=== PATIENT | female | born 1955 | race Caucasian/White ===

== ENCOUNTER 2016-08-06 16:29 | Emergency (ER) | payer MEDICAID ==
[~2016-08-06] VITALS: Wt 83.1 kg
[2016-08-06] MEDS ORDERED: ONDANSETRON 4 MG INJ IV STA (16:43)
[2016-08-06] MEDS ORDERED: morphine 4 MG/ML VIAL IV STA ×2 (16:43→17:55)
[2016-08-06] MEDS ORDERED: FAMOTIDINE 20 MG INJ IV STA (16:43)
[2016-08-06] MEDS ORDERED: HYD25 PO (17:11)
[2016-08-06] MEDS ORDERED: LANT3I SC (17:11)
[2016-08-06] MEDS ORDERED: OMEP20CA16 PO (17:13)
[2016-08-06] MEDS ORDERED: SODI325T PO (17:18)
[2016-08-06] MEDS ORDERED: ACET-141 PO (17:21)
[2016-08-06] MEDS ORDERED: CAPT25TA3 PO (17:21)
[2016-08-06] MEDS ORDERED: METO-407 PO (17:22)
[2016-08-06 17:31] LABS: ADD UMIC YES; URINE BILIRUBIN (Dip) NEGATIVE (NEGATIVE); URINE BLOOD (Dip) 2+ (NEGATIVE); URINE COLOR LT. YELLOW (YELLOW); URINE GLUCOSE (Dip) NEGATIVE (NEGATIVE); URINE KETONES (Dip) NEGATIVE (NEGATIVE); URINE LEUKOCYTE ESTERASE (Dip) 1+ (NEGATIVE); URINE NITRITE (Dip) NEGATIVE (NEGATIVE); URINE TOTAL PROTEIN (Dip) NEGATIVE (NEGATIVE); URINE UROBILINOGEN (Dip) 1.0 E.U./dL (0.1-1.0)
[2016-08-06 17:33] LABS: ALBUMIN 3.2 g/dl (3.3-4.9)
[2016-08-06 17:34] LABS: POTASSIUM 3.8 mmol/L (3.5-5.1)
[2016-08-06 17:36] LABS: ALBUMIN/GLOBULIN RATIO 0.69; BILIRUBIN,INDIRECT 0.6 mg/dl (0-1.1); BILIRUBIN,TOTAL 0.6 mg/dl (0.2-1.3); CREATININE 0.59 mg/dl (0.44-1.00); TOTAL PROTEIN 7.8 g/dl (6.1-8.1)
[2016-08-06 17:37] LABS: CALCIUM 8.3 mg/dl (8.4-10.2)
[2016-08-06 17:52] LABS: BASOPHILS % 0.3 % (0.0-2.0); CONDITION 1; EOSINOPHILS % 0.4 % (0.0-7.0); HEMATOCRIT 27.2 % (37.0-47.0); HEMOGLOBIN 8.5 g/dl (12.0-16.0); LYMPHOCYTES # 0.7 10^3/ul (0.8-2.9); MEAN CORPUSCULAR HGB CONC 31.4 g/dl (32.0-37.0); MEAN CORPUSCULAR VOLUME 73.4 fl (82.0-101.0); MEAN PLATELET VOLUME 11.3 fl (7.4-10.4); MONOCYTE # 0.4 10^3/ul (0.3-0.9); MONOCYTES % 12.8 % (0.0-11.0); NEUTROPHIL # 2.4 10^3/ul (1.6-7.5); NEUTROPHILS % 67.5 % (39.0-77.0); PLATELET COUNT 132 10^3/UL (140-440); RED BLOOD COUNT 3.71 10^6/ul (4.20-5.40); RED CELL DISTRIBUTION WIDTH 19.5 % (11.5-14.5); SUSPECT 1; UNCORRECTED WBC 3.5 10^3/ul (4.8-10.8); WHITE BLOOD COUNT 3.5 10^3/ul (4.8-10.8)
[2016-08-06 17:53] LABS: LH ANALYZER COMMENTS 1
[2016-08-06] MEDS ORDERED: METOCLOPRAMIDE 10 MG INJ IV ONE (18:00)
[2016-08-06 18:22] LABS: BACTERIA,URINE MODERATE; SQUAMOUS EPITHELIAL CELL,UR MANY
--- NOTE | 2016-08-06 18:40 | RADRPT ---
PROCEDURE: CT Abdomen and Pelvis without intravenous contrast. CLINICAL INDICATION: Abdominal pain. TECHNIQUE: CT scan of the abdomen and pelvis without intravenous contrast was performed on a multi -slice CT scanner. Coronal and sagittal reformatted images were obtained from the axial source image s. Images were reviewed on a high-resolution PACS workstation. Total DLP = 1138.1 mGy-cm. CTDIvol = 19.8 mGy. One or more of the following dose reduction techniques were used: Automated exposure control. Adjustment of the mA and/or kV according to patient size. Use of iterative reconstruction technique. COMPARISON: None. FINDINGS: CT abdomen and pelvis: The lung bases are clear. The heart size is normal in size. The liver is small in size with hetero geneous density and lobular margins consistent with cirrhosis. There is no focal hepatic mass or in trahepatic biliary dilatation. The spleen is enlarged consistent with portal hypertension.. The p ancreas as visualized is normal. The gallbladder is nondistended with multiple small calcified intr aluminal stones. There is slight wall thickening of the gallbladder.. The adrenal glands are horace l. The kidneys are symmetrically unremarkable. No urolithiasis, obstructive uropathy, or solid mas s lesion is seen. The stomach is partially collapsed, but is grossly unremarkable. The distal esophagus is mildly dis tended with fluid.. The small bowels are unremarkable. The colon and rectum are normal. There is n o evidence of appendicitis or diverticulitis. The uterus has been removed.. The bladder is decompres sed. There is a large amount of ascites throughout the abdomen and pelvis.. There is no abdominal o r pelvic adenopathy, free air or mass. The aorta is normal in caliber with calcific atherosclerosis . The osseous structures showing degen erative spondylosis of the spine. No osteolytic or osteoblastic lesions are identified. There is a small umbilical hernia containing ascites. Mild subcutaneous edema is present.. Lack of IV and ora l contrast limits sensitivity of exam. IMPRESSION: 1. Cirrhotic changes of the liver. 2. Splenomegaly consistent with portal hypertension. 3. Large ascites. 4. Cholelithiasis with mild gallbladder wall thickening. 5. Mild fluid distension of the distal esophagus. 6. Small umbilical hernia containing ascites. 7. Status post hysterectomy. RPTAT: HJ[facility] .Aron Gottlieb MD, MD Date Time Electronically viewed and signed by .Aron Gottlieb MD, on 08/06/2016 18:40 .L/
--- NOTE | 2016-08-06 18:59 | ERD ---
ER Documentation Chief Complaint Date/Time DATE: 08/06/16 TIME: 18:53 Chief Complaint ABD PAIN AND DISTENTION FOR THE PAST MONTH, NAUSEA AND DIZZY. HPI This is a 61-year-old female who presents to the emergency room for evaluation of abdominal pain, nausea and vomiting for the past month. The patient does have a history of hepatitis C secondary to blood transfusion. The patient came to the ER today for evaluation of this distention, nausea and vomiting. She denies any fevers or diarrhea associated with this. ROS All systems reviewed and are negative except as per history of present illness. Medications Home Meds Reported Medications Metoprolol Tartrate* (Lopressor*) 100 Mg Tablet, 100 MG PO BID, #60 TAB 08/06/16 Captopril* (Captopril*) 25 Mg Tablet, 25 MG PO BID, #60 TAB 08/06/16 Acetaminophen* (Acetaminophen*) 500 MG Extra Strength Tablet, 1000 MG PO Q6H Y for PAIN AND OR ELEVATED TEMP, TAB 08/06/16 Sodium Bicarbonate* (Sodium Bicarbonate*) 325 Mg Tablet, 1.1 GM PO AC MEALS, TAB 08/06/16 Omeprazole* (Omeprazole*) 20 Mg Capsule.dr, 20 MG PO DAILY, #30 CAP 08/06/16 Hydrochlorothiazide* (Hydrochlorothiazide*) 25 Mg Tab, 25 MG PO DAILY, #30 TAB 08/06/16 Insulin Glargine* (Lantus*) 100 Unit/Ml Soln, 40 UNIT SC QAM, #1 VIAL 08/06/16 Allergies Allergies: Coded Allergies: No Known Allergy (Unverified , 08/06/16) PMhx/Soc Hx Cardiac Disorders: Yes (HTN) Hx Miscellaneous Medical Probl: Yes (DIABETES) Hx Alcohol Use: No Hx Substance Use: No Hx Tobacco Use: No Smoking Status: Never smoker Physical Exam Vitals Vital Signs Date Time Temp Pulse Resp B/P Pulse Ox O2 Delivery O2 Flow Rate FiO2 08/06/16 16:32 98.8 56 21 136/61 98 Physical Exam INITIAL VITAL SIGNS: Reviewed by me GENERAL: The patient is well developed and appropriate for usual state of health in no apparent distress HEENT: Pupils equal, round, and reactive to light. EOMI. There is no scleral icterus. NECK: C-spine is soft and supple, there is no meningismus. There is no cervical lymphadenopathy. LUNGS: Clear to auscultation bilaterally. There are no rales, wheezes or rhonchi. HEART: Regular rate and rhythm, no murmurs, clicks, rubs or gallops. ABDOMEN: Mild abdominal distention, reducible umbilical hernia, EXTREMITIES: There is no peripheral cyanosis or edema. No focal swelling or erythema. NEUROLOGICAL: The patient moves all four extremities with 5/5 strength. Cranial nerves II - XII are intact. Normal gait. Alert and oriented SKIN: There is no apparent rash or petechiae. HEME/LYMPHATIC: There is no evidence of excessive bruising or lymphedema. PSYCHIATRIC: The patient does not appear anxious or depressed. Result Diagram: 08/06/16 1700 08/06/16 1700 Results 24 hrs Laboratory Tests Test 08/06/16 17:00 08/06/16 17:10 Alanine Aminotransferase (ALT/SGPT) 30IU/L Albumin 3.2g/dl Albumin/Globulin Ratio 0.69 Alkaline Phosphatase 154IU/L Anion Gap 15 Aspartate Amino Transf (AST/SGOT) 30IU/L Basophils # 0.010^3/ul Basophils % 0.3% Blood Morphology Comment Blood Urea Nitrogen 15mg/dl Calcium Level 8.3mg/dl Carbon Dioxide Level 26mmol/L Chloride Level 103mmol/L Creatinine 0.59mg/dl Direct Bilirubin 0.00mg/dl Eosinophils # 0.010^3/ul Eosinophils % 0.4% Globulin 4.60g/dl Glucose Level 136mg/dl Hematocrit 27.2% Hemoglobin 8.5g/dl Indirect Bilirubin 0.6mg/dl Lipase 106U/L Lymphocytes # 0.710^3/ul Lymphocytes % 19.0% Mean Corpuscular Hemoglobin 23.0pg Mean Corpuscular Hemoglobin Concent 31.4g/dl Mean Corpuscular Volume 73.4fl Mean Platelet Volume 11.3fl Monocytes # 0.410^3/ul Monocytes % 12.8% Neutrophils # 2.410^3/ul Neutrophils % 67.5% Nucleated Red Blood Cells # 0.010^3/ul Nucleated Red Blood Cells % 0.0/100WBC Platelet Count 27829^3/UL Potassium Level 3.8mmol/L Red Blood Count 3.7110^6/ul Red Cell Distribution Width 19.5% Sodium Level 140mmol/L Total Bilirubin 0.6mg/dl Total Protein 7.8g/dl White Blood Count 3.510^3/ul Urine Bacteria MODERATE Urine Bilirubin NEGATIVE Urine Clarity SL HAZY Urine Color LT. YELLOW Urine Glucose NEGATIVE% Urine Hemoglobin 2+ Urine Ketones NEGATIVE Urine Leukocyte Esterase 1+ Urine Microscopic RBC 5-10/HPF Urine Microscopic WBC 10-25/HPF Urine Nitrite NEGATIVE Urine Specific [place] 1.020 Urine Squamous Epithelial Cells MANY Urine Total Protein NEGATIVE Urine Urobilinogen 1.0 E.U./dL Urine pH 6.0 Current Medications Medications (Trade) Dose Ordered Sig/Alberto Route PRN Reason Start Time Stop Time Status Last Admin Dose Admin Morphine Sulfate (morphine) 4 mg ONCE STAT IV 08/06/16 16:43 08/06/16 16:44 08/06/16 17:27 Ondansetron HCl (Zofran Inj) 4 mg ONCE STAT IV 08/06/16 16:43 08/06/16 16:44 08/06/16 17:27 Famotidine (Pepcid Iv) 20 mg ONCE STAT IV 08/06/16 16:43 08/06/16 16:44 08/06/16 17:27 Metoclopramide HCl (Reglan) 10 mg ONCE ONCE IV 08/06/16 18:00 08/06/16 18:01 08/06/16 18:11 Morphine Sulfate (morphine) 4 mg ONCE STAT IV 08/06/16 17:55 08/06/16 17:56 08/06/16 18:11 Procedures/MDM CT abdomen pelvis without: 1. Cirrhotic changes of the liver. 2. Splenomegaly consistent with portal hypertension. 3. Large ascites. 4. Cholelithiasis with mild gallbladder wall thickening. 5. Mild fluid distension of the distal esophagus. 6. Small umbilical hernia containing ascites. 7. Status post hysterectomy. This 61-year-old female presents to the emergency room for evaluation of abdominal distention, nausea and vomiting. When I evaluated this patient she did have mild abdominal distention and does have a history of hepatitis C. Lab work does reveal a microcytic anemia and thrombocytopenia. CT of the abdomen and pelvis was obtained which does show a large ascites. This patient does have a mild gallbladder wall thickening however no right upper quadrant tenderness. I advised this patient that that she will need a paracentesis. It is not emergent at this time as this patient has no respiratory compromise secondary to ascites. I advised patient to return to the emergency room tomorrow for a paracentesis. The patient and the patient's daughter verbalized understanding and are okay with her plan of care at this time. Departure Diagnosis: Primary Impression: Ascites Additional Impressions: Pancytopenia Microcytic anemia Condition: Stable ANNA PERSAUD DO Aug 06, 2016 18:59
[2016-08-06 19:00] LABS: INR 1.36; PROTIME 16.8 Sec (12.2-14.2); PT RATIO 1.3
[2016-08-06 19:01] LABS: PARTIAL THROMBOPLASTIN TIME 38.4 Sec (25.0-35.0)
[2016-08-06 19:32] VITALS: BP 130/73; PULSE 88; RESP 16; TEMP 98.3
== END 2016-08-06 19:34 | disposition home or self-care (01) ==
LOC: E/R 16:29
DX: R18.8 Other ascites (principal); D61.818 Other pancytopenia; D50.9 Iron deficiency anemia, unspecified; I10 Essential (primary) hypertension; E11.9 Type 2 diabetes mellitus without complications; R10.9 Unspecified abdominal pain
CPT/HCPCS: 36415; 74176; 80053; 81001; 83690; 85025; 85610; 85730; 96374; 96375; 96376; J2270; J2405; J2765; Z7502; Z7610; 81003

== ENCOUNTER 2016-08-07 10:31 | Emergency (ER) | payer MEDICAID ==
[~2016-08-07] VITALS: Wt 83.1 kg
[~2016-08-07 10:31] MED LIST: ACET-141 PO; CAPT25TA3 PO; HYD25 PO; LANT3I SC; METO-407 PO; OMEP20CA16 PO; SODI325T PO
[2016-08-07] MEDS ORDERED: ONDANSETRON 4 MG INJ IV STA (11:41)
[2016-08-07] MEDS ORDERED: LIDOCAINE 1% (MDV) 20 ML INJ ONE (12:39)
--- NOTE | 2016-08-07 14:39 | RADRPT ---
PROCEDURE: Ultrasound guided paracentesis CLINICAL INDICATION: Ascites TECHNIQUE: The risks benefits and alternatives of the procedure were explained to the patient. In formed written consent was obtained. The patient understood the risks benefits and alternatives and wished to proceed with the procedure. A time out was performed. The overlying skin of the right lower quadrant of the abdomen was prepped and draped in the usual sterile fashion. Approximately 10 cc of lidocaine was injected locally for pain control. Utilizing ultrasound guidance, an 6-[place] p aracentesis catheter was placed into the peritoneal cavity without difficulty. Fluid was drained i nto vacuum bottles. After completion of draining fluid, the catheter was removed and direct pressur e was applied to the puncture site. A compression bandage was then placed at the puncture site. e patient tolerated the procedure well without complication. The fluid was not sent to the lab fo r further analysis. COMPARISON: CT dated 08/06/2016 FINDINGS: Surgeon: Oneyda CAMACHO. Preprocedural diagnosis: Ascites. Postprocedural diagnosis: Ascites. Samples removed: 8280 cc of clear yellow fluid was obtained. Complications: None. Estimated blood loss: 0 cc. Condition: Stable and unchanged. IMPRESSION: 1. Successful ultrasound-guided paracentesis. RPTAT: II .Uriel Call MD, MD Date Time Electronically viewed and signed by .Uriel Call MD, on 08/07/2016 14:38 .M/
--- NOTE | 2016-08-07 14:47 | ERD ---
ER Documentation Chief Complaint Date/Time DATE: 08/07/16 TIME: 10:50 Chief Complaint abdominal distention seen yesterday. here for us paracenthesis HPI 61-year-old female with a history of diabetes mellitus, hypertension and cirrhosis secondary to hepatitis C from a blood transfusion ambulatory to the ED complaining of increasing abdominal distention and needing a paracentesis. She was seen in the ED yesterday evening but radiology was not available and she was told to return today for the procedure. Denies nausea, vomiting, hematemesis hematochezia. No dysuria or polyuria. No headache or neck pain. No altered mental status or confusion. Denies shortness of breath but does complain of mild orthopnea. No fevers or chills. ROS All systems reviewed and are negative except as per history of present illness. Medications Home Meds Reported Medications Metoprolol Tartrate* (Lopressor*) 100 Mg Tablet, 100 MG PO BID, #60 TAB 08/06/16 Captopril* (Captopril*) 25 Mg Tablet, 25 MG PO BID, #60 TAB 08/06/16 Acetaminophen* (Acetaminophen*) 500 MG Extra Strength Tablet, 1000 MG PO Q6H Y for PAIN AND OR ELEVATED TEMP, TAB 08/06/16 Sodium Bicarbonate* (Sodium Bicarbonate*) 325 Mg Tablet, 1.1 GM PO AC MEALS, TAB 08/06/16 Omeprazole* (Omeprazole*) 20 Mg Capsule.dr, 20 MG PO DAILY, #30 CAP 08/06/16 Hydrochlorothiazide* (Hydrochlorothiazide*) 25 Mg Tab, 25 MG PO DAILY, #30 TAB 08/06/16 Insulin Glargine* (Lantus*) 100 Unit/Ml Soln, 40 UNIT SC QAM, #1 VIAL 08/06/16 Allergies Allergies: Coded Allergies: No Known Allergy (Unverified , 08/06/16) PMhx/Soc Reviewed in chart. As per HPI. Hx Cardiac Disorders: Yes (HTN) Hx Psychiatric Problems: No Hx Miscellaneous Medical Probl: Yes (DIABETES) Hx Alcohol Use: No Hx Substance Use: No Hx Tobacco Use: No Smoking Status: Never smoker FmHx Reviewed in chart. Not relevant to presenting complaint. Physical Exam Vitals Vital Signs Date Time Temp Pulse Resp B/P Pulse Ox O2 Delivery O2 Flow Rate FiO2 08/07/16 14:55 98.3 66 20 122/51 98 Room Air 08/07/16 14:39 98.3 66 20 125/51 94 Room Air 08/07/16 10:36 98.5 70 22 137/68 98 Physical Exam Const: Alert, uncomfortable but in no acute distress. Head: Atraumatic Eyes: Normal Conjunctiva ENT: Normal External Ears, Nose and Mouth. Neck: Full range of motion. No JVD. Resp: Breath sounds are equal but diminished at the bases. Clear to auscultation bilaterally Cardio: Regular rate and rhythm, no murmurs Abd: Soft, distended, non tender, positive fluid wave. Normal bowel sounds. No rebound or guarding. Skin: No petechiae or rashes Back: No midline or flank tenderness Ext: No cyanosis, or edema Neur: Awake and alert. No focal deficit observed. Psych: Normal Mood and Affect Results 24 hrs Current Medications Medications (Trade) Dose Ordered Sig/Alberto Route PRN Reason Start Time Stop Time Status Last Admin Dose Admin Ondansetron HCl (Zofran Inj) 4 mg ONCE STAT IV 08/07/16 11:41 08/07/16 13:52 DC 08/07/16 11:51 Lidocaine (Xylocaine 1% (Mdv) 20 ml) 20 ml STK-MED ONCE .ROUTE 08/07/16 12:39 08/07/16 12:40 DC Lidocaine (Xylocaine 1% (Mpf)) 5 ml STK-MED ONCE .ROUTE 08/07/16 14:55 08/07/16 14:56 DC PROCEDURE: Ultrasound guided paracentesis CLINICAL INDICATION: Ascites TECHNIQUE: The risks benefits and alternatives of the procedure were explained to the patient. Informed written consent was obtained. The patient understood the risks benefits and alternatives and wished to proceed with the procedure. A time out was performed. The overlying skin of the right lower quadrant of the abdomen was prepped and draped in the usual sterile fashion. Approximately 10 cc of lidocaine was injected locally for pain control. Utilizing ultrasound guidance, an 6-[place]isian paracentesis catheter was placed into the peritoneal cavity without difficulty. Fluid was drained into vacuum bottles. After completion of draining fluid, the catheter was removed and direct pressure was applied to the puncture site. A compression bandage was then placed at the puncture site. The patient tolerated the procedure well without complication. The fluid was not sent to the lab for further analysis. COMPARISON: CT dated 08/06/2016 FINDINGS: Surgeon: Oneyda CAMACHO. Preprocedural diagnosis: Ascites. Postprocedural diagnosis: Ascites. Samples removed: 8280 cc of clear yellow fluid was obtained. Complications: None. Estimated blood loss: 0 cc. Condition: Stable and unchanged. IMPRESSION: 1. Successful ultrasound-guided paracentesis. RPTAT: II .Uriel Call MD, MD Date Time Electronically viewed and signed by .Uriel Call MD, MD on 08/07/2016 14: 38 .M/ Procedures/MDM DOCUMENTS REVIEWED: ED nurse, prior ED, prior records REEXAMINATION/REEVALUATION: Time:14:45. Doing well. Abdomen soft nontender. Blood pressure 125/51. Heart rate 67. [employer] DECISION MAKIN-year-old female with a history of diabetes mellitus , hypertension and cirrhosis secondary to hepatitis C from a blood transfusion ambulatory to the ED complaining of increasing abdominal distention and needing a paracentesis. No tenderness or other signs of spontaneous bacterial peritonitis. Over 8 L of fluid removed. Postprocedure patient is doing well. Abdomen is soft and nontender. No hypotension and vital signs are normal. Stable for discharge with precautionary instructions and outpatient follow-up as counseled tomorrow with PMD. Counseled patient and daughter regarding diagnostic workup, diagnosis and need for followup. Understands to return to ED if symptoms recur, worsen or any other concerns. Departure Diagnosis: Primary Impression: Ascites Ascites type: other type Qualified Code: R18.8 - Other ascites Additional Impressions: Liver cirrhosis Hepatic cirrhosis type: unspecified hepatic cirrhosis Ascites presence: with ascites Qualified Code: K74.60 - Cirrhosis of liver with ascites, unspecified hepatic cirrhosis type Hepatitis C Viral hepatitis chronicity: unspecified Hepatic coma status: without hepatic coma Qualified Code: B19.20 - Hepatitis C virus infection without hepatic coma, unspecified chronicity Diabetes mellitus type 2 in nonobese Hypertension Hypertension type: essential hypertension Qualified Code: I10 - Essential hypertension Condition: Stable Patient Instructions: Ascites JOSE RAMON GUTIERREZ MD Aug 07, 2016 14:47
[2016-08-07 14:55] VITALS: BP 122/51; PULSE 66; RESP 20; TEMP 98.3
[2016-08-07] MEDS ORDERED: LIDOCAINE 1% (MPF) 5 ML VIAL ONE (14:55)
== END 2016-08-07 15:01 | disposition home or self-care (01) ==
LOC: E/R 10:31
DX: R18.8 Other ascites (principal); K74.60 Unspecified cirrhosis of liver; B19.20 Unspecified viral hepatitis C without hepatic coma; E11.9 Type 2 diabetes mellitus without complications; I10 Essential (primary) hypertension; Z79.4 Long term (current) use of insulin
CPT/HCPCS: J2405; Z7610; 96374